=== PATIENT | female | born 1940 | race Caucasian/White ===

== ENCOUNTER → 2017-02-10 | Outpatient (CLI) | payer OTHER ==
[~2017-02-10] MED LIST: ADVAIR 100-501 EACH INH; ALENDRONATE SOD70 MG PO; ALLOPURINOL 10100 M1 PO; ANAPROX PO; ASPIRIN EC81 M1 PO; AZITHROMYCIN 2250 MG PO; CALTRATE-600 W1 EACH PO; CEFDINIR300 MG PO; CLONAZEPAM 0.50.5 M1 PO; CLONAZEPAM 1 MG1 M1 PO; COLACE100 MG PO; COUMADIN 2 MG TA2 M1 PO; COUMADIN 5 MG TA5 M1 PO; CYCLOBENZAPRINE5 MG PO; DIPHENHIST25 MG PO; ENDOCET 7.5-321 EACH PO; FAMOTIDINE 20 M20 MG PO; FENTANYL PA25 MCG/HR TP; FENTANYL PA25 MCG/HR TRANSDERM; FENTANYL PATCH75 MCG TRANSDERM; FIORICET 50-321 EACH PO; HYDRALAZINE 2525 MG PO; HYDROCODON-ACE1 EAC7 PO; HYDROCODON-ACE1 EAC8 PO; HYDROXYZINE HCL25 M1 PO; K-DUR 20 MEQ T20 MEQ PO; KEFLEX500 MG PO; LESCOL XL80 MG PO; LIDODERM 5%1 PATC1 TOP; LIPITOR10 MG PO; LYRICA 50 MG50 MG PO; LYRICA 75 MG CA75 MG PO; MIRALAX17 GM PO; NAPROSYN500 M1 PO; NAPROSYN500 MG PO; NAPROXEN DELAY500 M1 PO; NEURONTIN 300300 M1 PO; NEXIUM40 MG PO; NORCO 5-325 TA1 EACH PO; NORCO 7.5-3251 EACH PO; NORVASC 2.5 MG2.5 M1 PO; OMEPRAZOLE PO; OXYCODONE HCL 55 MG PO; OXYCODONE HCL15 MG PO; OXYCODONE-ACET1 EAC4 PO; PENTOXIFYLLINE400 MG PO; PERCOCET 5-3251 EACH PO; PERCOCET 7.5-31 EACH PO; PRAVASTATIN SOD20 MG PO; PREDNISONE 10 M10 MG PO; PREDNISONE 20 M20 MG PO; PRILOSEC20 MG PO; PROAIR HFA8.5 GM INH; PROZAC20 MG PO; REMERON15 MG PO; REQUIP 1 MG TABL1 M1 PO; SANTYL OINTMENT30 G1; SENOKOT-S1 TA1 PO; SERTRALINE HCL100 MG PO; SIMVASTATIN20 MG PO; SIMVASTATIN40 MG PO; VITAMIN E400 UNIT PO; ZOLOFT PO; ZOLOFT100 MG PO; [UNRECOGNIZED DRUG - OTHER]
== END ==
LOC: ULTRA 08:27
DX: M79.605 Pain in left leg (principal); M79.89 Other specified soft tissue disorders

== ENCOUNTER → 2019-02-28 | Outpatient (CLI) | payer OTHER | LOC: RAD 01-31 14:38 | DX: K22.8 Other specified diseases of esophagus (principal); R13.10 Dysphagia, unspecified; K44.9 Diaphragmatic hernia without obstruction or gangrene ==